=== PATIENT | male | born 1990 ===

== ENCOUNTER 2016-09-21 14:38 | Day surgery (SDC) | payer OTHER ==
[~2016-09-21] VITALS: Ht 167.6 cm; Wt 86.6 kg
[~2016-09-21 14:38] MED LIST: COLACE 100100 MG/CAP PO; IBU800 M1 PO; MAG-OX 400400 MG/TAB PO; NAPROSYN500 MG; NATURE'S BLEND100 M1 PO
[2016-09-21 14:42] VITALS: BP 113/78; PULSE 62; TEMP 97.9
[2016-09-21 16:39] VITALS: BP 118/86; PULSE 72; TEMP 97.8
[2016-09-21 16:45] VITALS: BP 118/79; PULSE 78
[2016-09-21 17:00] VITALS: BP 108/75; PULSE 57
== END 2016-09-21 17:15 | disposition home or self-care (01) ==
LOC: SDCO 14:38
DX: K22.70 Barrett's esophagus without dysplasia (principal); K52.9 Noninfective gastroenteritis and colitis, unspecified; K21.0 Gastro-esophageal reflux disease with esophagitis; K51.311 Ulcerative (chronic) rectosigmoiditis with rectal bleeding; K92.1 Melena
CPT/HCPCS: J2250; J2405; J3010; J7030